=== PATIENT | female | born 1990 | race Caucasian/White ===

== ENCOUNTER 2023-04-18 08:32 | Observation (INO) | payer OTHER, SELFPAY ==
--- NOTE | 2023-04-18 08:33 | US_ITS ---
[address] [address] Patient Name: ZAYRA MCWILLIAMS MRN: [id number] date: 1990 Sex: F Assigned Patient Location: [facility] Current Patient Location: [facility] Accession/Order Number: [id number] Exam Date: 04/18/2023 08:25 Report Date: 04/18/2023 09:39 At the request of: MEGHAN KEEN Procedure: US OB BPP w non-stress EXAMINATION: US OB BPP w non-stress HISTORY: z34.93 Third trimester COMPARISON: No relevant comparison available. TECHNIQUE: Ultrasound biophysical profile was performed in the radiology department. BREATHING MOVEMENTS: 2.0 GROSS BODY MOVEMENTS: 2.0 TONE: 2.0 QUALITATIVE AMNIOTIC FLUID VOLUME: 2.0 PRESENTATION: Cephalic HEART RATE: 156.1 bpm AMNIOTIC FLUID VOLUME: 12.8 cm GESTATIONAL AGE: 36 weeks 1 days CONCLUSION: Total biophysical profile score 8.0. Electronically authenticated by: MICHAEL PAINTER Date: 04/18/2023 09:39
[2023-04-18 08:55] VITALS: BP 122/74; PULSE 100
== END 2023-04-18 10:05 | disposition home or self-care (01) ==
LOC: FBC 09:25 → US 09:25
PROVIDERS: Admitting Provider Obstetrics & Gynecology; PCP Obstetrics & Gynecology; Visit Provider Obstetrics & Gynecology
DX: O99.613 Diseases of the digestive system complicating pregnancy, third trimester (principal); K92.89 Other specified diseases of the digestive system; K51.90 Ulcerative colitis, unspecified, without complications; Z3A.36 36 weeks gestation of pregnancy; Z87.898 Personal history of other specified conditions; Z79.02 Long term (current) use of antithrombotics/antiplatelets
CPT/HCPCS: 59025; 76818; 87081

== ENCOUNTER 2023-04-18 19:57 | Outpatient (REF) | payer OTHER, SELFPAY | END 2023-04-18 19:58 | LOC: LAB 19:57 | PROVIDERS: PCP Obstetrics & Gynecology; Visit Provider Physician Assistant | DX: Z34.93 Encounter for supervision of normal pregnancy, unspecified, third trimester (principal) | CPT/HCPCS: 87081 ==

== ENCOUNTER 2023-04-21 08:15 | Outpatient (RCR) | payer OTHER, SELFPAY ==
--- NOTE | 2023-04-21 08:44 | PC.NURSE ---
Pt arrives for scheduled NST. Reports +FM, denies LOF or bleeding.
== END 2023-04-21 08:41 | disposition home or self-care (01) ==
LOC: FBCO 08:15
PROVIDERS: PCP Obstetrics & Gynecology; Visit Provider Obstetrics & Gynecology
DX: O99.891 Other specified diseases and conditions complicating pregnancy (principal)
CPT/HCPCS: 59025

== ENCOUNTER 2023-04-25 08:02 | Outpatient (OUT) | payer OTHER, SELFPAY ==
--- NOTE | 2023-04-25 08:00 | US_ITS ---
[address] [address] Patient Name: ZAYRA MCWILLIAMS MRN: [id number] date: 1990 Sex: F Assigned Patient Location: [facility] Current Patient Location: Accession/Order Number: [id number] Exam Date: 04/25/2023 08:08 Report Date: 04/25/2023 15:22 At the request of: LAZ AGUILAR Procedure: US OB BPP w non-stress EXAMINATION: US OB BPP w non-stress HISTORY: Third trimester Z34.93 COMPARISON: Ultrasound biophysical profile 04/18/2023 TECHNIQUE: Ultrasound biophysical profile was performed in the radiology department. BREATHING MOVEMENTS: 2.0 GROSS BODY MOVEMENTS: 2.0 TONE: 2.0 QUALITATIVE AMNIOTIC FLUID VOLUME: 2.0 PRESENTATION: Cephalic HEART RATE: 155.2 bpm bpm. AMNIOTIC FLUID VOLUME: 13.6 cm GESTATIONAL AGE: 37 weeks 1 days CONCLUSION: Total biophysical profile score 8.0. Electronically authenticated by: MICHAEL PAINTER Date: 04/25/2023 15:22
[2023-04-25 08:47] VITALS: BP 125/75; PULSE 100
== END 2023-04-25 09:15 | disposition home or self-care (01) ==
LOC: FBCO 08:02 → FBC 08:04
PROVIDERS: Visit Provider Obstetrics & Gynecology
DX: Z34.93 Encounter for supervision of normal pregnancy, unspecified, third trimester (principal)
CPT/HCPCS: 76818

== ENCOUNTER 2023-04-28 08:06 | Outpatient (OUT) | payer OTHER, SELFPAY ==
[2023-04-28 08:13] VITALS: BP 110/60; PULSE 100
== END 2023-04-28 08:36 | disposition home or self-care (01) ==
LOC: FBCO 08:07 → FBC 08:08 → FBCO 08:31
PROVIDERS: Visit Provider Obstetrics & Gynecology
DX: Z34.93 Encounter for supervision of normal pregnancy, unspecified, third trimester (principal)
CPT/HCPCS: 59025

== ENCOUNTER 2023-05-02 07:54 | Outpatient (OUT) | payer OTHER, SELFPAY ==
--- NOTE | 2023-05-02 07:54 | US_ITS ---
[address] [address] Patient Name: ZAYRA MCWILLIAMS MRN: [id number] date: 1990 Sex: F Assigned Patient Location: [facility] Current Patient Location: Accession/Order Number: [id number] Exam Date: 05/02/2023 07:56 Report Date: 05/02/2023 15:26 At the request of: LAZ AGUILAR Procedure: US OB BPP w non-stress EXAMINATION: US OB BPP w non-stress HISTORY: Z34.93 Third trimester COMPARISON: Ultrasound biophysical profile 04/25/2023 TECHNIQUE: Ultrasound biophysical profile was performed in the radiology department. BREATHING MOVEMENTS: 2.0 GROSS BODY MOVEMENTS: 2.0 TONE: 2.0 QUALITATIVE AMNIOTIC FLUID VOLUME: 2.0 PRESENTATION: Cephalic HEART RATE: 139.9 bpm bpm. AMNIOTIC FLUID VOLUME: 14.1 cm GESTATIONAL AGE: 38 weeks 1 days CONCLUSION: Total biophysical profile score 8.0. Electronically authenticated by: MICHAEL PAINTER Date: 05/02/2023 15:26
[2023-05-02 08:21] VITALS: BP 115/69; PULSE 93
== END 2023-05-02 08:45 | disposition home or self-care (01) ==
LOC: US 07:55 → FBC 07:56
PROVIDERS: Visit Provider Obstetrics & Gynecology
DX: Z34.93 Encounter for supervision of normal pregnancy, unspecified, third trimester (principal)
CPT/HCPCS: 59025; 76818

== ENCOUNTER 2023-05-05 07:53 | Outpatient (OUT) | payer OTHER, SELFPAY ==
[2023-05-05 08:11] VITALS: BP 125/58; PULSE 98
== END 2023-05-05 09:00 | disposition home or self-care (01) ==
LOC: FBCO 08:04 → FBC 08:04
PROVIDERS: Visit Provider Obstetrics & Gynecology
DX: O26.899 Other specified pregnancy related conditions, unspecified trimester (principal); Z86.718 Personal history of other venous thrombosis and embolism
CPT/HCPCS: 59025

== ENCOUNTER 2023-05-09 08:06 | Outpatient (OUT) | payer OTHER, SELFPAY ==
--- NOTE | 2023-05-09 08:00 | US_ITS ---
[address] [address] Patient Name: ZAYRA MCWILLIAMS MRN: [id number] date: 1990 Sex: F Assigned Patient Location: [place] [facility] [place]Order Number: [id number] Exam Date: 05/09/2023 08:00 Report Date: 05/09/2023 20:36 At the request of: LAZ AGUILAR Procedure: US OB BPP w non-stress EXAMINATION: US OB BPP w non-stress HISTORY: THIRD TRIMESTER Z34.93 COMPARISON: No relevant comparison available. TECHNIQUE: Ultrasound biophysical profile was performed in the radiology department. FINDINGS: BREATHING MOVEMENTS: 2.0 GROSS BODY MOVEMENTS: 2.0 TONE: 2.0 QUALITATIVE AMNIOTIC FLUID VOLUME: 2.0 PRESENTATION: CEPHALIC HEART RATE: 148.4 bpm H.B./min AMNIOTIC FLUID VOLUME: 15.8 cm cm GESTATIONAL AGE: 39 weeks 1 days Absent left kidney CONCLUSION: Total biophysical profile score: 8.0 Electronically authenticated by: SURESH STEPHENSON Date: 05/09/2023 20:36
[2023-05-09 08:37] VITALS: BP 133/88; PULSE 96
== END 2023-05-09 09:04 | disposition home or self-care (01) ==
LOC: US 08:06 → FBC 08:07
PROVIDERS: Visit Provider Obstetrics & Gynecology
DX: Z34.93 Encounter for supervision of normal pregnancy, unspecified, third trimester (principal)
CPT/HCPCS: 59025; 76818

== ENCOUNTER 2023-05-10 05:25 | Inpatient (IN) | payer OTHER, SELFPAY ==
[2023-05-10] VITALS (26 sets, daily range): BP systolic 79–122; BP diastolic 45–77; PULSE 60–98; RESP 9–26; TEMP 36.1–37.1; O2SAT 98–100
[2023-05-10 06:04] LABS: Bilirubin Urine NEGATIVE (NEGATIVE); Blood Urine TRACE-I (NEGATIVE); Clarity Urine CLEAR (CLEAR); Color Urine LT. YELLOW (YELLOW); Glucose Urine UA NEGATIVE (NEGATIVE); Ketones Urine NEGATIVE (NEGATIVE); Leukocyte Esterase Urine MODERATE (NEGATIVE); Nitrite Urine NEGATIVE (NEGATIVE); Protein Urine NEGATIVE (NEG/TRACE); Specific Gravity Urine 1.025 (1.005-1.025)
[2023-05-10] MEDS: 0.9 % SODIUM CHLORIDE 1,000 ML 1000 ML IV ×2 (06:05→06:56)
[2023-05-10 06:22] LABS: Bacteria Urine LARGE #/HPF (NONE SEEN); Cast Seen? NONE SEEN #/LPF (NONE SEEN); Crystals Seen? None Seen #/HPF (None Seen); Mucus Urine NONE SEEN (NONE SEEN); Squamous Epithelial Cell Urine FEW #/LPF (NONE/RARE); Urine Culture Indicated YES
[2023-05-10 06:23] LABS: Amphetamine Screen Urine NEGATIVE (NEGATIVE); Barbiturates Screen Urine NEGATIVE (NEGATIVE); Benzodiazepines Screen Urine NEGATIVE (NEGATIVE); Buprenorphine Screen Urine NEGATIVE (NEGATIVE); Cannabinoid Screen Urine NEGATIVE (NEGATIVE); Cocaine Screen Urine NEGATIVE (NEGATIVE); Methadone Screen Urine NEGATIVE (NEGATIVE); Methamphetamines Screen Urine NEGATIVE (NEGATIVE); Opiate Screen Urine NEGATIVE (NEGATIVE); Oxycodone Screen Urine NEGATIVE (NEGATIVE); Phencyclidine Screen Urine NEGATIVE (NEGATIVE); Tricyclic Antidepressant Urine NEGATIVE (NEGATIVE)
[2023-05-10 06:37] LABS: Basophils Percent Auto 0.3 % (0.2-2.0); Eosinophils Absolute Auto 0.3 10^3/uL (0.0-0.7); Eosinophils Percent Auto 2.3 % (0.9-7.0); Hematocrit 32.1 % (36.0-48.0); Hemoglobin 10.4 g/dL (12.0-16.0); Immature Granulocytes Abs Auto 0.07 10^3/uL (0.00-0.03); Immature Granulocytes Pct Auto 0.6 % (0.0-0.5); Lymphocytes Absolute Auto 2.4 10^3/uL (1.2-3.8); Lymphocytes Percent Auto 22.1 % (20.5-60.0); Mean Corpuscular HGB Conc 32.4 g/dL (29.9-35.2); Mean Corpuscular Hemoglobin 31.3 pg (26.7-34.0); Mean Corpuscular Volume 96.7 fL (81.0-99.0); Mean Platelet Volume 9.8 fL (9.5-13.5); Monocytes Absolute Auto 0.5 10^3/uL (0.3-0.8); Monocytes Percent Auto 4.9 % (1.7-12.0); Neutrophils Absolute Auto 7.6 10^3/uL (1.4-6.5); Neutrophils Percent Auto 69.8 % (43.0-75.0); Platelet Count 263 10^3/uL (150-450); Red Blood Count 3.32 10^6/uL (4.20-5.40); White Blood Count 10.9 10^3/uL (4.0-11.0)
--- NOTE | 2023-05-10 07:14 | W.PC.ACHO ---
Registration Status: ADM IN Primary Language: Yakut Preferred Language: Yakut Active Medications 0710- Report given to Scout Aldridge RN Generic Name Dose Route Start Last Admin Trade Name Freq PRN Reason Stop Dose Admin Sodium Chloride 1,000 mls @ 1,000 mls/hr 05/10/23 05:30 05/10/23 06:56 Sodium Chloride 0.9% 1,000 Ml IV 05/10/23 07:29 1,000 mls/hr .Q1H KIM Administration Sodium Chloride 1,000 mls @ 125 mls/hr 05/10/23 05:30 Sodium Chloride 0.9% 1,000 Ml IV .Q8H KIM IV Insertion/Site Date of IV Line Insertion [18g 05/10/23 left Forearm] IV Insertion Time [18g left 06:05 Forearm] Neurology Patient orientation (short person,place,time,situation list) [place] coma scale total score 15 Respiratory Oxygen Delivery Method Room Air Oxygen Delivery Method Room Air Oxygen Delivery Method Room Air Bowels Date of Last Bowel Movement 05/10/23 Renal Bladder Pattern Continent Catheter Urinary Catheter Date of 05/10/23 Insertion [Urethral] Urinary Catheter Date of 05/10/23 Insertion [Urethral] Urinary Catheter Time of 06:25 Insertion [Urethral] Urinary Catheter Time of 06:25 Insertion [Urethral]
[2023-05-10] MEDS: CEFAZOLIN SODIUM/DEXTROSE 2 GM/50 ML PIGGYBACK IV (07:43)
[2023-05-10] MEDS: LACTATED RINGER'S SOLUTION 1,000 ML 1000 ML IV ×2 (08:05→08:58)
--- NOTE | 2023-05-10 08:30 | P.OBPRC_ITS ---
Procedure Pre-op/Post-op diagnoses: Pre-Op/Post-Op Diagnoses Operation Date: 05/10/23 07:30 <No data on this case meets the specified criteria> Procedure: Procedures Operation Date: 05/10/23 07:30 Actual Procedure Side Surgeon p Repeat with Bilateral Salpingectomy Bilateral Stephane Farnsworth DO Director Internal Communications: Shilpi Herron Estimated blood loss (mL): 500 Disposition: floor Anesthesia type: Spinal
--- NOTE | 2023-05-10 08:31 | OP_ITS ---
OPERATION DATE: ??05/10/2023 PROCEDURE:? Repeat low transverse section with bilateral salpingectomy. PREOPERATIVE DIAGNOSIS: 1.? Intrauterine at 39 weeks. 2.? Previous . 3.? Desires permanent sterilization. POSTOPERATIVE DIAGNOSIS:? 1.? Intrauterine at 39 weeks. 2.? Previous . 3.? Desires permanent sterilization. ANESTHESIA:? Spinal with Duramorph. SURGEON:? Stephane Farnsworth D.O. VIDEO PRODUCTION ENGINEER:? ELOISE Pro URINE OUTPUT:? Yellow and clear. BLOOD LOSS:? 500 mL. FINDINGS:? Viable female.? Apgars and weight unknown at this time. SPECIMEN:? Placenta as well as tubes. PROCEDURE:? Patient was taken back to the Operating Room where she was given a spinal anesthesia with Duramorph without difficulty. She was prepped and draped in the normal sterile fashion. A Pfannenstiel skin incision was then made 2?cm above the symphysis pubis and carried down to underlying rectus fascia using a Bovie. The fascia was incised in the midline and extended laterally using Gonzalez scissors. Two Blu clamps were placed on the superior aspect of the fascia and dissected off the underlying rectus muscles. The same was performed on the inferior aspect as well. The muscles were then in the midline. Peritoneum was identified and entered bluntly. The peritoneum was then extended superiorly and inferiorly with good visualization of the bladder. The bladder blade was inserted. Vesicouterine peritoneum was identified, tented up, and entered with Metzenbaum scissors. A bladder flap was then created digitally. The bladder blade was reinserted. A low transverse incision was made on the patient's uterus and extended laterally digitally. The was then delivered atraumatically after the bladder blade was removed in the cephalic position. The cord was clamped and cut. Cord blood was obtained. The infant was handed off to awaiting team. The patient's placenta was spontaneously delivered. The uterus was then exteriorized. The uterus was cleared of all clots and debris. The bladder blade was reinserted. The patient's uterine incision was closed using #0 Vicryl in a running lock fashion. Excellent hemostasis was assured.? The uterus was then returned to the patient's abdomen. The patient's abdomen was copiously irrigated using warm saline. Peritoneal gutters were cleared of all clots and debris. Again excellent hemostasis was assured. The tubes were identified, grasped with a Sindy, the LigaSure apparatus was used to come across the mesosalpinx and the tube removed in its entirety. Excellent hemostasis was assured. The patient's peritoneum was closed using 3?0?Vicryl in a running fashion. The patient's fascia was closed using #0 Vicryl in a running fashion. The patient's skin was closed using 4-0 Vicryl subcuticularly. The patient tolerated the procedure well. Sponge, lap, and needle counts were correct x2. The patient was taken to the Recovery Room in stable condition. SAMUEL
--- NOTE | 2023-05-10 08:55 | PC.NURSE ---
PATIENT ARRIVED TO OR WITH CATHETER IN PLACE. PATIENT HAD 300 ML OF CLEAR YELLOW URINE OUTPUT DURING THE CASE. PATIENT WENT BACK TO [facility] WITH CATHETER IN PLACE.
[2023-05-10] MEDS: KETOROLAC TROMETHAMINE 30 MG/ML VIAL IVP ×3 (09:42→22:07)
[2023-05-10] MEDS: CEFAZOLIN SODIUM/DEXTROSE,ISO 2 GM/50 ML PIGGYBACK IV (14:38)
--- NOTE | 2023-05-10 19:09 | W.PC.ACHO ---
Registration Status: ADM IN Primary Language: American Preferred Language: American Active Medications Generic Name Dose Route Start Last Admin Trade Name Freq PRN Reason Stop Dose Admin Al Hydroxide/Mg Hydroxide 2,400 mg 05/10/23 08:32 Magnesium Hydroxide 2,400 Mg/10 Ml Oral.Susp PO Q6H PRN Dyspepsia Diphenhydramine HCl 25 mg 05/10/23 08:32 Diphenhydramine Hcl 50 Mg/Ml (1ml) Vial IV 05/11/23 08:34 Q6H PRN Itching Docusate Sodium 100 mg 05/11/23 09:00 Docusate Sodium 100 Mg Capsule PO BID KIM Enoxaparin Sodium 40 mg 05/10/23 09:00 Enoxaparin Sodium 40 Mg/0.4 Ml Syringe SUBQ Q24H KIM Sodium Chloride 1,000 mls @ 125 mls/hr 05/10/23 05:30 Sodium Chloride 0.9% 1,000 Ml IV .Q8H KIM Sodium Chloride 1,000 mls @ 125 mls/hr 05/10/23 08:45 Sodium Chloride 0.9% 1,000 Ml IV .Q8H KIM Ibuprofen 800 mg 05/10/23 08:32 Ibuprofen 400 Mg Tablet PO Q8H PRN Pain Ketorolac Tromethamine 30 mg 05/10/23 08:32 05/10/23 16:03 Ketorolac Tromethamine 30 Mg/Ml Vial IVP 05/12/23 08:33 30 mg Q6H PRN Administration Pain Nalbuphine HCl 10 mg 05/10/23 08:32 Nalbuphine Hcl 10 Mg/Ml Ampule IV 05/11/23 08:34 Q3H PRN Itching Ondansetron HCl 4 mg 05/10/23 08:32 Ondansetron Pf 4 Mg/2 Ml Vial IV Q6H PRN Nausea And Vomiting Ondansetron HCl 4 mg 05/10/23 08:32 Ondansetron 4 Mg Rapdis Tablet PO Q6H PRN Nausea And Vomiting Oxycodone/Acetaminophen 1 each 05/10/23 08:32 Oxycodone Hcl/Acetaminophen 5-325 Mg Tablet PO Q4H PRN Pain Oxycodone/Acetaminophen 2 each 05/10/23 08:32 Oxycodone Hcl/Acetaminophen 5-325 Mg Tablet PO Q4H PRN Pain Senna 17.2 mg 05/10/23 20:00 Sennosides 8.6 Mg Tablet PO QHS PRN Constipation Simethicone 80 mg 05/10/23 08:32 Simethicone 80 Mg Tab.Chew PO QID PRN Abdominal Distention Diet Category Date Time Status Regular Consistency Diet Diet 05/10/23 Dinner Active IV Insertion/Site Date of IV Line Insertion [18g 05/10/23 left Forearm] IV Insertion Time [18g left 06:05 Forearm] Neurology Patient orientation (short person,place,time,situation list) [place] coma scale total score 15 Erick coma scale total score 15 [place] coma scale total score 15 [place] coma scale total score 15 Respiratory Lung sounds [Bilateral clear Throughout] Lung sounds [Bilateral clear Throughout] Lung sounds [Bilateral clear Throughout] Lung sounds [Bilateral clear Throughout] Pulse Oximetry 98 Pulse Oximetry 100 Pulse Oximetry 100 Pulse Oximetry 99 Pulse Oximetry 99 Pulse Oximetry 100 Pulse Oximetry 100 Oxygen Delivery Method Room Air Oxygen Delivery Method Room Air Oxygen Delivery Method Room Air Oxygen Delivery Method Room Air Oxygen Delivery Method Room Air Oxygen Delivery Method Room Air Bowels Date of Last Bowel Movement 05/10/23 Renal Bladder Pattern Continent Bladder Pattern Continent Catheter Urinary Catheter Date of 05/10/23 Insertion [Urethral] Urinary Catheter Date of 05/10/23 Insertion [Urethral] Urinary Catheter Time of 06:25 Insertion [Urethral] Urinary Catheter Time of 06:25 Insertion [Urethral]
[2023-05-10] MEDS: ENOXAPARIN SODIUM 40 MG/0.4 ML SYRINGE SUBQ (20:29)
[2023-05-11] VITALS (10 sets, daily range): BP systolic 102–137; BP diastolic 55–86; PULSE 66–102; RESP 16; TEMP 36.5–36.8
[2023-05-11] MEDS: KETOROLAC TROMETHAMINE 30 MG/ML VIAL IVP ×4 (04:38→22:45)
--- NOTE | 2023-05-11 04:57 | PC.NURSE ---
[place] catheter removed intact. Patient tolerated well.
[2023-05-11 06:15] LABS: Basophils Percent Auto 0.2 % (0.2-2.0); Eosinophils Absolute Auto 0.3 10^3/uL (0.0-0.7); Eosinophils Percent Auto 3.2 % (0.9-7.0); Hematocrit 29.7 % (36.0-48.0); Hemoglobin 9.4 g/dL (12.0-16.0); Immature Granulocytes Abs Auto 0.07 10^3/uL (0.00-0.03); Immature Granulocytes Pct Auto 0.8 % (0.0-0.5); Lymphocytes Absolute Auto 1.7 10^3/uL (1.2-3.8); Lymphocytes Percent Auto 19.8 % (20.5-60.0); Mean Corpuscular HGB Conc 31.6 g/dL (29.9-35.2); Mean Corpuscular Hemoglobin 31.2 pg (26.7-34.0); Mean Corpuscular Volume 98.7 fL (81.0-99.0); Mean Platelet Volume 9.6 fL (9.5-13.5); Monocytes Absolute Auto 0.4 10^3/uL (0.3-0.8); Monocytes Percent Auto 4.8 % (1.7-12.0); Neutrophils Percent Auto 71.2 % (43.0-75.0); Platelet Count 227 10^3/uL (150-450); Red Blood Count 3.01 10^6/uL (4.20-5.40); Red Cell Distribution Width 14.2 % (11.0-15.0); White Blood Count 8.4 10^3/uL (4.0-11.0)
--- NOTE | 2023-05-11 08:09 | PM.OBPN ---
OB - PN: Subj Subjective Patient comments: no complaints [place] status: doing well Exam Constitutional Vital Signs - 24 hr 05/10/23 08:41 05/10/23 08:56 05/10/23 09:11 Temperature 98.7 F 97.9 F 97.7 F Pulse Rate Respiratory Rate Blood Pressure Blood Pressure [Left Arm] Pulse Oximetry Oxygen Delivery Method Room Air Room Air Room Air 05/10/23 08:45 05/10/23 08:45 05/10/23 08:50 Temperature Pulse Rate 77 83 98 H Respiratory Rate 9 L 17 12 Blood Pressure 106/62 115/60 Blood Pressure [Left Arm] Pulse Oximetry 100 100 99 Oxygen Delivery Method 05/10/23 08:56 05/10/23 09:00 05/10/23 09:06 Temperature Pulse Rate 95 H 98 H 74 Respiratory Rate 15 21 26 H Blood Pressure 85/45 L 85/70 L 79/45 L Blood Pressure [Left Arm] Pulse Oximetry 99 100 100 Oxygen Delivery Method 05/10/23 09:06 05/10/23 09:13 05/10/23 09:15 Temperature Pulse Rate 81 84 Respiratory Rate 19 18 Blood Pressure 79/45 L 105/58 L 96/62 Blood Pressure [Left Arm] Pulse Oximetry 98 Oxygen Delivery Method 05/10/23 09:31 05/10/23 09:31 05/10/23 09:45 Temperature Pulse Rate Respiratory Rate Blood Pressure 93/50 L 93/50 L 103/67 Blood Pressure [Left Arm] Pulse Oximetry Oxygen Delivery Method 05/10/23 11:16 05/10/23 09:30 05/10/23 10:00 Temperature 97 F L Pulse Rate 88 80 Respiratory Rate 16 16 Blood Pressure 114/72 Blood Pressure [Left Arm] 93/50 L 118/69 Pulse Oximetry Oxygen Delivery Method 05/10/23 10:15 05/10/23 10:30 05/10/23 11:00 Temperature Pulse Rate 74 62 60 Respiratory Rate 16 16 16 Blood Pressure Blood Pressure [Left Arm] 122/65 H 111/71 102/63 Pulse Oximetry Oxygen Delivery Method 05/10/23 11:15 05/10/23 16:00 05/10/23 17:15 Temperature 97.1 F L Pulse Rate 86 78 Respiratory Rate 16 16 Blood Pressure Blood Pressure [Left Arm] 114/72 118/62 Pulse Oximetry 98 Oxygen Delivery Method Room Air 05/10/23 20:37 05/11/23 00:55 05/11/23 04:57 Temperature 98.2 F 97.9 F Pulse Rate Respiratory Rate 16 16 16 Blood Pressure Blood Pressure [Left Arm] Pulse Oximetry Oxygen Delivery Method Room Air Room Air Documenting provider has reviewed patient's vital signs: yes Common normals: no apparent distress Respiratory Common normals: normal respiratory effort and clear to auscultation bilaterally Cardio Common normals: regular rate and regular rhythm GI Common normals: Normal to inspection, nondistended, normoactive bowel sounds present Extremity Common normals: normal to inspection, no clubbing, cyanosis or edema and no calf tenderness Results Labs Labs: Short CBC 05/11/23 Range/Units 05:40 WBC 8.4 (4.0-11.0) 10^3/uL Hgb 9.4 L (12.0-16.0) g/dL Hct 29.7 L (36.0-48.0) % Plt Count 227 (150-450) 10^3/uL OB - PN: A/P Plan - day: 1 Plan: routine postop care Time Spent with Patient Time: Total time spent is greater than 50% in coordination of care (as documented) at patient's floor/unit and/or counseling patient: Total time spent with greater than 50% in coordination of care (as documented) at patient's floor/unit and/or counseling patient: less than 15 minutes
[2023-05-11] MEDS: DOCUSATE SODIUM 100 MG CAPSULE PO ×2 (09:00→20:57)
--- NOTE | 2023-05-11 10:09 | PC.NURSE ---
patient is pumping every 3-4 hours and obtaining no colostrum- reports little breast change with and no leaking of colostrum during .
--- NOTE | 2023-05-11 19:21 | W.PC.ACHO ---
Registration Status: ADM IN Primary Language: Cameroonian Preferred Language: Cameroonian Active Medications Generic Name Dose Route Start Last Admin Trade Name Freq PRN Reason Stop Dose Admin Al Hydroxide/Mg Hydroxide 2,400 mg 05/10/23 08:32 Magnesium Hydroxide 2,400 Mg/10 Ml Oral.Susp PO Q6H PRN Dyspepsia Diphenhydramine HCl 25 mg 05/10/23 08:32 Diphenhydramine Hcl 50 Mg/Ml (1ml) Vial IV 05/11/23 08:34 Q6H PRN Itching Docusate Sodium 100 mg 05/11/23 09:00 Docusate Sodium 100 Mg Capsule PO BID KIM Enoxaparin Sodium 40 mg 05/10/23 09:00 05/10/23 20:29 Enoxaparin Sodium 40 Mg/0.4 Ml Syringe SUBQ 40 mg Q24H KIM Administration Sodium Chloride 1,000 mls @ 125 mls/hr 05/10/23 05:30 Sodium Chloride 0.9% 1,000 Ml IV .Q8H KIM Sodium Chloride 1,000 mls @ 125 mls/hr 05/10/23 08:45 Sodium Chloride 0.9% 1,000 Ml IV .Q8H KIM Ibuprofen 800 mg 05/10/23 08:32 Ibuprofen 400 Mg Tablet PO Q8H PRN Pain Ketorolac Tromethamine 30 mg 05/10/23 08:32 05/11/23 04:38 Ketorolac Tromethamine 30 Mg/Ml Vial IVP 05/12/23 08:33 30 mg Q6H PRN Administration Pain Nalbuphine HCl 10 mg 05/10/23 08:32 Nalbuphine Hcl 10 Mg/Ml Ampule IV 05/11/23 08:34 Q3H PRN Itching Ondansetron HCl 4 mg 05/10/23 08:32 Ondansetron Pf 4 Mg/2 Ml Vial IV Q6H PRN Nausea And Vomiting Ondansetron HCl 4 mg 05/10/23 08:32 Ondansetron 4 Mg Rapdis Tablet PO Q6H PRN Nausea And Vomiting Oxycodone/Acetaminophen 1 each 05/10/23 08:32 Oxycodone Hcl/Acetaminophen 5-325 Mg Tablet PO Q4H PRN Pain Oxycodone/Acetaminophen 2 each 05/10/23 08:32 Oxycodone Hcl/Acetaminophen 5-325 Mg Tablet PO Q4H PRN Pain Senna 17.2 mg 05/10/23 20:00 Sennosides 8.6 Mg Tablet PO QHS PRN Constipation Simethicone 80 mg 05/10/23 08:32 Simethicone 80 Mg Tab.Chew PO QID PRN Abdominal Distention Diet Category Date Time Status Regular Consistency Diet Diet 05/10/23 Dinner Active Neurology [place] coma scale total score 15 [place] coma scale total score 15 [place] coma scale total score 15 [place] coma scale total score 15 Respiratory Lung sounds [Bilateral clear Throughout] Lung sounds [Bilateral clear Throughout] Lung sounds [Bilateral clear Throughout] Lung sounds [Bilateral clear Throughout] Lung sounds [Bilateral clear Throughout] Pulse Oximetry 98 Pulse Oximetry 98 Pulse Oximetry 100 Pulse Oximetry 100 Pulse Oximetry 99 Pulse Oximetry 99 Pulse Oximetry 100 Pulse Oximetry 100 Oxygen Delivery Method Room Air Oxygen Delivery Method Room Air Oxygen Delivery Method Room Air Oxygen Delivery Method Room Air Oxygen Delivery Method Room Air Oxygen Delivery Method Room Air Bowels Date of Last Bowel Movement 05/10/23 Renal Bladder Pattern Continent Bladder Pattern Continent
[2023-05-11] MEDS: ENOXAPARIN SODIUM 40 MG/0.4 ML SYRINGE SUBQ (20:57)
[2023-05-12] MEDS: KETOROLAC TROMETHAMINE 30 MG/ML VIAL IVP (05:29)
--- NOTE | 2023-05-12 07:15 | W.PC.ACHO ---
Registration Status: ADM IN Primary Language: Finnish Preferred Language: Finnish Active Medications Generic Name Dose Route Start Last Admin Trade Name Freq PRN Reason Stop Dose Admin Al Hydroxide/Mg Hydroxide 2,400 mg 05/10/23 08:32 Magnesium Hydroxide 2,400 Mg/10 Ml Oral.Susp PO Q6H PRN Dyspepsia Docusate Sodium 100 mg 05/11/23 09:00 05/11/23 20:57 Docusate Sodium 100 Mg Capsule PO 100 mg BID KIM Administration Enoxaparin Sodium 40 mg 05/10/23 09:00 05/11/23 20:57 Enoxaparin Sodium 40 Mg/0.4 Ml Syringe SUBQ 40 mg Q24H KIM Administration Sodium Chloride 1,000 mls @ 125 mls/hr 05/10/23 05:30 Sodium Chloride 0.9% 1,000 Ml IV .Q8H KIM Sodium Chloride 1,000 mls @ 125 mls/hr 05/10/23 08:45 Sodium Chloride 0.9% 1,000 Ml IV .Q8H KIM Ibuprofen 800 mg 05/10/23 08:32 Ibuprofen 400 Mg Tablet PO Q8H PRN Pain Ketorolac Tromethamine 30 mg 05/10/23 08:32 05/12/23 05:29 Ketorolac Tromethamine 30 Mg/Ml Vial IVP 05/12/23 08:33 30 mg Q6H PRN Administration Pain Ondansetron HCl 4 mg 05/10/23 08:32 Ondansetron Pf 4 Mg/2 Ml Vial IV Q6H PRN Nausea And Vomiting Ondansetron HCl 4 mg 05/10/23 08:32 Ondansetron 4 Mg Rapdis Tablet PO Q6H PRN Nausea And Vomiting Oxycodone/Acetaminophen 1 each 05/10/23 08:32 05/11/23 16:02 Oxycodone Hcl/Acetaminophen 5-325 Mg Tablet PO 1 each Q4H PRN Administration Pain Oxycodone/Acetaminophen 2 each 05/10/23 08:32 05/11/23 23:21 Oxycodone Hcl/Acetaminophen 5-325 Mg Tablet PO 2 each Q4H PRN Administration Pain Senna 17.2 mg 05/10/23 20:00 Sennosides 8.6 Mg Tablet PO QHS PRN Constipation Simethicone 80 mg 05/10/23 08:32 Simethicone 80 Mg Tab.Chew PO QID PRN Abdominal Distention Neurology Erick coma scale total score 15 Respiratory Lung sounds [Bilateral clear Throughout] Oxygen Delivery Method Room Air Renal Bladder Pattern Continent
--- NOTE | 2023-05-12 08:41 | PC.NURSE ---
0800-pt ambulating around room, d/c instructions given for self and infant as requested. Denies pain or needs at this time
--- NOTE | 2023-05-12 08:52 | PM.OBPN ---
OB - PN: Subj Subjective Patient comments: no complaints [place] status: doing well Exam Narrative Exam Narrative: patient is 2 day post op repeat section with bilateral salpingectomy. Patient does desire to go home today. Constitutional Vital Signs - 24 hr 05/11/23 08:55 05/11/23 08:56 05/11/23 16:05 Temperature 97.7 F Pulse Rate 89 89 102 H Respiratory Rate 16 Blood Pressure 111/69 117/79 Blood Pressure [Left Arm] 111/69 Oxygen Delivery Method 05/11/23 23:21 05/11/23 23:32 05/11/23 23:44 Temperature 97.9 F Pulse Rate 78 Respiratory Rate 16 16 Blood Pressure 102/58 L Blood Pressure [Left Arm] Oxygen Delivery Method Room Air Documenting provider has reviewed patient's vital signs: yes Common normals: no apparent distress General appearance: cooperative Orientation/consciousness: Yes awake, Yes oriented to person, Yes oriented to place and Yes oriented to time Chest Common normals: inspection of chest normal Respiratory Common normals: normal respiratory effort Effort & inspection: able to speak in complete sentences Auscultation: clear to auscultation bilaterally Cardio Common normals: regular rate and regular rhythm Rhythm: regular rhythm GI Common normals: Normal to inspection, nondistended, normoactive bowel sounds present Inspection: normal to inspection Auscultation: normoactive bowel sounds Palpation: soft Common normals: no CVA tenderness Back & Pelvis Common normals: no CVA tenderness Psych Common normals: mental status grossly normal Attitude: calm Activity/motor behavior: appropriate eye contact Speech: normal speech Thought process: normal thought process OB - PN: A/P Time Spent with Patient Time: Total time spent is greater than 50% in coordination of care (as documented) at patient's floor/unit and/or counseling patient: Total time spent with greater than 50% in coordination of care (as documented) at patient's floor/unit and/or counseling patient: less than 15 minutes
[2023-05-12] MEDS: DOCUSATE SODIUM 100 MG CAPSULE PO (09:16)
[2023-05-12 09:20] VITALS: BP 112/57; PULSE 83
--- NOTE | 2023-06-09 | DS_ITS ---
DISCHARGE DATE: ??06/09/2023 PRIMARY DIAGNOSES: 1.? Intrauterine at 39 weeks. 2.? Desires permanent sterilization. PROCEDURE:? Repeat with bilateral salpingectomy. HOSPITAL COURSE:? As expected.? Please see chart for full details.? LABORATORY DATA:? Please see chart. COMPLICATIONS:? None. DISCHARGE CONDITION:? Stable. CONSULTATION:? Anesthesia. DISCHARGE INSTRUCTIONS: 1.? Diet:? Regular. 2.? Medications: a.? Percocet 5/325 one to two p.o. every 4-6 hours p.r.n. pain. b.? Motrin 800 one p.o. every 8 hours p.r.n. pain. 3.? Followup in one week. Restrictions:? Pelvic rest for 6 weeks.? No heavy lifting.? May drive when pain free and no longer on narcotics. [id number]
== END 2023-05-12 09:45 | disposition home or self-care (01) | DRG 784 ==
PROVIDERS: Admitting Provider Obstetrics & Gynecology; Visit Provider Obstetrics & Gynecology
PROC: 10D00Z1 Extraction of Products of Conception, Low, Open Approach (ICD-10-PCS; CPT 59514; principal; 2023-05-10 07:30)
DX: O34.211 Maternal care for low transverse scar from previous cesarean delivery (principal); K51.90 Ulcerative colitis, unspecified, without complications; Z37.0 Single live birth; O99.62 Diseases of the digestive system complicating childbirth; Z79.01 Long term (current) use of anticoagulants; Z79.899 Other long term (current) drug therapy; Z30.2 Encounter for sterilization; Z3A.39 39 weeks gestation of pregnancy
CPT/HCPCS: 36415; 59050; 80307; 81001; 85025; 86850; 86900; 86901; 87086; 88304; 88341; 88342; 94667; 94761; 96372; 96374; 96376

== ENCOUNTER 2024-01-01 20:35 | Outpatient (REF) | payer OTHER, SELFPAY ==
[2024-01-05 12:10] LABS: Age Gdln ACOG Testing Note (.); HPV Aptima Negative (Negative); IGP, Aptima HPV, rfx 16/18,45 Note (.)
== END 2024-01-01 20:36 | disposition home or self-care (01) ==
LOC: LAB 20:35
PROVIDERS: Visit Provider Physician Assistant
DX: Z01.419 Encounter for gynecological examination (general) (routine) without abnormal findings (principal)
CPT/HCPCS: 87624; G0145